=== PATIENT | male | born 1975 | race Caucasian/White ===

== ENCOUNTER → 2017-08-09 12:30 | Outpatient (CLI) | payer MEDICAID ==
[2017-08-09 13:07] LABS: BASOPHILS 0.2 % (0-2); HEMATOCRIT 46.3 % (42.0-54.0); HEMOGLOBIN 15.4 g/dL (13.5-17.5); IMMATURE GRANULOCYTES 0.6 % (0-5); LYMPHOCYTES 41.5 % (15-50); MCH 29.2 pg (26.0-34.0); MCHC 33.3 g/dL (31.0-37.0); MCV 87.7 fL (80.0-100.0); MEAN PLATELET VOLUME 10.7 fL (7.4-10.4); MONOCYTES 6.4 % (2-11); NEUTROPHILS 50.3 % (40-80); PLATELET COUNT 257 10x3/uL (130-400); RBC 5.28 10x6/uL (4.20-6.10)
[2017-08-09 13:48] LABS: ALBUMIN 4.1 g/dL (3.4-5.0); ANION GAP 14.5 mmol/L (8-16); BILIRUBIN - TOTAL 0.68 mg/dL (0.2-1.3); CALCIUM 9.4 mg/dL (8.5-10.1); CARBON DIOXIDE 29.2 mmol/L (21.0-32.0); CHOL - HDL RATIO 4.7 ratio (2.3-4.9); CREATININE - SERUM 1.2 mg/dL (0.6-1.3); LDL-HDL RATIO 3.2 ratio (1.5-3.5); MAGNESIUM - SERUM 2.2 mg/dL (1.8-2.4); POTASSIUM - SERUM 4.7 mmol/L (3.5-5.1); PROTEIN - SERUM 7.5 g/dL (6.4-8.2); SCREENING PSA (YEARLY) 1.11 ng/mL (0.00-4.00); THYROID STIMULATING HORMONE 1.65 uIU/mL (0.36-3.74)
== END | disposition home or self-care (01) ==
LOC: D.LAB 10:00
PROVIDERS: Family Medicine
DX: Z00.00 Encounter for general adult medical examination without abnormal findings (principal); E29.1 Testicular hypofunction; E78.5 Hyperlipidemia, unspecified; F41.9 Anxiety disorder, unspecified; R25.2 Cramp and spasm; M19.90 Unspecified osteoarthritis, unspecified site; I10 Essential (primary) hypertension; Z12.5 Encounter for screening for malignant neoplasm of prostate

== ENCOUNTER → 2017-09-05 18:54 | Outpatient (CLI) | payer MEDICAID | END | disposition home or self-care (01) | LOC: D.LABREF 18:54 | DX: L72.0 Epidermal cyst (principal) ==

== ENCOUNTER → 2019-04-17 10:22 | Outpatient (CLI) | payer MEDICAID ==
[2019-04-17 10:43] LABS: BASOPHILS 0.3 % (0-2); EOSINOPHILS 1.2 % (0-7); HEMATOCRIT 44.1 % (42.0-54.0); HEMOGLOBIN 15.3 g/dL (13.5-17.5); IMMATURE GRANULOCYTES 0.3 % (0-5); LYMPHOCYTES 35.7 % (15-50); MCH 29.5 pg (26.0-34.0); MCHC 34.7 g/dL (31.0-37.0); MEAN PLATELET VOLUME 10.4 fL (7.4-10.4); MONOCYTES 5.9 % (2-11); NEUTROPHILS 56.6 % (40-80); PLATELET COUNT 219 10x3/uL (130-400); RBC 5.19 10x6/uL (4.20-6.10); WBC 6.8 10x3/uL (4.8-10.8)
[2019-04-17 10:59] LABS: ALBUMIN 4.1 g/dL (3.4-5.0); ANION GAP 10.7 mmol/L (8-16); BILIRUBIN - TOTAL 0.56 mg/dL (0.2-1.3); CALCIUM 8.9 mg/dL (8.5-10.1); CARBON DIOXIDE 30.2 mmol/L (21.0-32.0); CHOL - HDL RATIO 4.3 ratio (2.3-4.9); CREATININE - SERUM 1.3 mg/dL (0.6-1.3); LDL-HDL RATIO 2.9 ratio (1.5-3.5); POTASSIUM - SERUM 3.9 mmol/L (3.5-5.1); PROTEIN - SERUM 7.6 g/dL (6.4-8.2)
== END | disposition home or self-care (01) ==
LOC: D.LAB 10:22
PROVIDERS: ATTEND Family Medicine
DX: E23.6 Other disorders of pituitary gland (principal); F52.8 Other sexual dysfunction not due to a substance or known physiological condition; Z00.01 Encounter for general adult medical examination with abnormal findings